=== PATIENT | female | born 1950 | race Caucasian/White ===

== ENCOUNTER 2016-04-06 16:10 | Emergency (ER) | payer MEDICARE ==
[2016-04-06] MEDS ORDERED: ONDANSETRON ODT 4 MG TAB ONE (18:23)
[2016-04-06] MEDS ORDERED: MORPHINE 4 MG/ML SYR ONE (18:23)
[2016-04-06] MEDS ORDERED: ORPHENADRINE 60 MG/2 ML AMP ONE (18:47)
== END 2016-04-06 19:33 | disposition home or self-care (01) ==
LOC: ER 16:10
CPT/HCPCS: 72050 ×2; 72072 ×2; 96372 ×2; 99284; J2270